=== PATIENT | male | born 1980 | race Caucasian/White ===

== ENCOUNTER 2022-11-01 00:27 | Emergency (ER) | payer BC ==
[~2022-11-01] VITALS: Ht 183 cm; Wt 170.1 kg
[2022-11-01 00:34] VITALS: BP 202/132
[2022-11-01] MEDS ORDERED: AZIT250T12 PO (00:44)
[2022-11-01] MEDS ORDERED: AZITHROMYCIN 250 MG TAB (ZITHROMAX) PO ONE (00:45)
[2022-11-01] MEDS ORDERED: TETANUS,DIPTH,PERTUSS P/F (BOOSTRIX) 0.5 ML VIAL IM ONE (00:45)
--- NOTE | 2022-11-01 00:45 | ED Lower Extremity ---
General Stated Complaint: CAT SCRATCH LEFT LEG Source: patient Exam Limitations: no limitations History of Present Illness Date Seen by Provider: Nov 01, 2022 Time Seen by Provider: 00:31 Initial Comments 42-year-old male with no pertinent past medical history coming in after his cat scratched his left leg with significant bleeding just prior to arrival. He was able to put pressure on it and help with the bleeding. Last tetanus shot was more than 10 years ago he believes. Otherwise denying any other acute complaints. Allergies and Home Medications Allergies Coded Allergies: No Known Drug Allergies (Unverified , 11/01/22) Patient Home Medication List Home Medication List Reviewed: Yes Review of Systems Constitutional: No fever EENTM: no symptoms reported Respiratory: no symptoms reported Cardiovascular: no symptoms reported Gastrointestinal: no symptoms reported Musculoskeletal: no symptoms reported Skin: see HPI Psychiatric/Neurological: No Symptoms Reported Past [id number]-Tunosi Hx Patient Social History Substance use?: No Physical Exam Vital Signs Capillary Refill : Height, Weight, BMI Height: '" Weight: lbs. oz. kg; BMI Method: General Appearance: WD/WN, no apparent distress HEENT: PERRL/EOMI, normal ENT inspection, pharynx normal Neck: non-tender, full range of motion, supple, normal inspection Cardiovascular: regular rate, rhythm, no edema, no murmur Respiratory: chest non-tender, lungs clear, normal breath sounds, no respiratory distress, no accessory muscle use Gastrointestinal: normal bowel sounds, non tender, soft; No distended, No guarding Legs: left leg other (Left leg with some punctate wounds that are hemostatic) Neurologic/Tendon: normal sensation, normal motor functions, normal tendon functions Neurologic/Psychiatric: no motor/sensory deficits, alert, normal mood/affect Skin: normal color, warm/dry Progress/Results/Core Measures Progress Progress Note : Progress Note 42-year-old male with above history coming in after he was scratched by his cat. ABCs were intact and vitals were stable on presentation. Physical exam with some punctate wounds to his left wallis which are now hemostatic. He does have some superficial veins that one of them looks like it was likely punctured and that is what bled for him significantly, however it has stopped now. We will update his tetanus here and give him antibiotics to cover for cat scratch disease. I believe he is otherwise stable for discharge with outpatient follow- up. He was sent home with strict return precautions Departure Impression Primary Impression: Cat scratch Disposition: HOME, SELF-CARE Condition: Stable Departure-Patient Inst. Decision time for Depature: 00:55 Referrals: NO,LOCAL PHYSICIAN (PCP/Family) Primary Care Physician Patient Instructions: Wound Care ED Add. Discharge Instructions: Please keep the wound clean, you can take ibuprofen or Tylenol as needed for pain. You will be on antibiotics for the next 5 days including today. The next dose will be due tomorrow night. If you notice any redness spreading up your skin, or pus coming out of the wound, then we would want the wound to be evaluated by doctor. Scripts Azithromycin (Azithromycin) 250 Mg Tablet 250 MG PO DAILY for 4 Days, #4 TAB Prov: KM HOLLOWAY MD 11/01/22 KM HOLLOWAY MD Nov 01, 2022 00:44
== END 2022-11-01 01:00 | disposition home or self-care (01) ==
LOC: ER FS 00:30
DX: S81.832A Puncture wound without foreign body, left lower leg, initial encounter (principal); Z23 Encounter for immunization; Z28.310 Unvaccinated for COVID-19; W55.03XA Scratched by cat, initial encounter
CPT/HCPCS: 90715